=== PATIENT | female | born 1930 | race Caucasian/White ===

== ENCOUNTER → 2018-01-07 | Outpatient (CLI) | payer MEDICARE ==
[2014-11-06 12:52] VITALS: BMI 27.3
[~2018-01-07] MED LIST: ACET-1966 PO; ALE70 PO; ASCO-182 PO; ASPI-1471 PO; AZAT50TA25 PO; BENZ100C26 PO; CALC1TAB32 PO; CEFU250T11 PO; CEP500 PO; CHOL100058 PO; DAR100 PO; ESOM40CA42 PO; EST625 PO; FLU IM; GABA-1 PO; GABA-549 PO; HYDR-2966 PO; HYDR15OI21 TP; HYDR25SU51 RC; IBUP-1455 PO; IBUP-56 PO; LEV100 PO; LEV112 PO; LEVO-317 PO; LEVO137T23 PO; LISI-362 PO; LOPE2CAP88 PO; LUTE20CA11 PO; METF-450 PO; METO25TA93 PO; MULT1TAB64 PO; MYCO250C38 PO; OMEP-125 PO; OMEP-153 PO; OXYB10TA16 PO; PNEU0.5D3 IM; PYRI60TA9 PO; VAL80 PO; VALS-25 PO; VALS1TAB6 PO
--- NOTE | 2018-01-07 14:42 | RADIOLOGY IMAGING REPORT ---
[place] [facility] [place] NAME: Anupama Villa : 1930 MR: [id number] V: [id number] EXAM DATE: ORDERING PHYSICIAN: LUIS OSHEA TECHNOLOGIST: Location: [facility] Patient: Anupama Villa : 1930 Visit/Account:[id number] Date of Sevice: 01/07/2018 DEXA Scan Clinical history: Osteopenia. Comparison: DEXA scan from 10/27/2013. LUMBAR SPINE: The bone mineral density (BMD) measured from L1-L3 correlates with a Z-score 0.9 and a T-score of -1 .3 which is osteopenia as defined by the World Health Organization. The corresponding risk of fractu re in the lumbar spine is increased compared with a young adult reference population. This value has decreased by 10.1 % since the prior study. More than 5% change is considered significant. HIP: Bone mineral density (BMD) measured in the Left femoral neck region correlates with a Z-score 1.0 and a T-score of -1.7 which is osteopenia as defined by the World Health Organization. The correspond ing risk of fracture in the hip is increased compared with a young adult reference population. The to qasim hip value has decrease by 1.6 % since the prior study. More than 5% change is considered signifi cant. Bone mineral density (BMD) measured in the Femoral Neck region measures 0.799 g/cm2. IMPRESSION: 1. Lumbar spine: Osteopenia. There has been decrease in the bone mineral density since the previous exam. 2. Left femoral neck region: Osteopenia. There has been decrease in the bone mineral density of the total hip since the previous exam. 3. Femoral Neck: Bone Mineral Density is 0.799 g/cm2 The next DEXA scan of this patient should include the following sites: L1-L4 and the left hip. FRAX? WHO Fracture Risk Assessment Tool link: <http://www.shef.ac.uk/FRAX/tool.jsp?locationValue=9> PLEASE NOTE: 1) The World Health Organization defines low BMD as follows: T-score Normal > -1 Osteopenia < -1 and > -2.5 Osteoporosis < -2.5 without fractures Established osteoporosis < -2.5 with fractures 2) In general, you may wish to consider: Diagnosis Treatment Follow-up DEXA Normal BMD Prevention 2-3 years Osteopenia Prevention/therapy 1-2 years Osteoporosis Therapy Yearly 3) Fracture risk estimated from the T-score is more accurate for vertebral fractures (often spontane ous) than for hip fractures. Report Dictated By: Lauri Busby at 01/07/2018 2:36 PM Report E-Signed By: Lauri Busby at 01/07/2018 2:38 PM WSN:[id number]
--- NOTE | 2018-01-16 15:16 | RADIOLOGY IMAGING REPORT ---
FACILITY: [facility] - [place] PATIENT NAME: EFRAIN BOURGEOIS : [id number] MR: [id number] V: [id number] EXAM DATE: [id number] ORDERING PHYSICIAN: LUIS OSHEA TECHNOLOGIST: Kenia Gonzales PROCEDURE:BILATERAL DIGITAL SCREENING MAMMOGRAM WITH CAD ASSISTED INTERPRETATION & 3D TOMOSYNTHESIS COMPARISON:Priors INDICATIONS:SCREENING FINDINGS: Scattered fibroglandular densities are present in both breasts. An architectural distortion is present in the posterior Right upper outer quadrant consistent with surgical scaring, essential unchanged. A few benign appearing calcifications are scattered bilaterally. DIAGNOSTIC CATEGORY 2: BENIGN FINDING RECOMMENDATIONS: ROUTINE MAMMOGRAM AND CLINICAL EVALUATION IN 1 YR. IMPRESSION: BIRADS 2: Benign finding. Dictated by: Nicholas Guardado M.D. on 01/08/2018 at 16:18 Transcribed by: MONICA on 01/09/2018 at 8:33 Approved by: Lauri Martin on 01/16/2018 at 15:15 [facility]
== END ==
LOC: MAMO 00:42
PROVIDERS: ATTEND Internal Medicine
DX: Z12.31 Encounter for screening mammogram for malignant neoplasm of breast (principal); M85.88 Other specified disorders of bone density and structure, other site
CPT/HCPCS: 77063; 77067; 77080

== ENCOUNTER 2018-07-17 09:40 | Emergency (ER) | payer MEDICARE ==
[2014-11-06 12:52] VITALS: Wt 72.6 kg
--- NOTE | 2018-07-17 10:13 | ER Report ---
History and Physical Time Seen By MD: 09:55 Hx. of Stated Complaint: states tightness and dull ache in chest that radiates to right side for one week. hx of HTN and right side breat cancer HPI/ROS CHIEF COMPLAINT: Chest pain HISTORY OF PRESENT ILLNESS: t has had 1 wk of r sided chest pressure. It is located above r breast and radiates to shoulder and r upper back. Pt has been rubbing chest due to pain. She states that pressure has been constant x 1 week, not associated with exertion. She noted chills last night. She notes a rash on her r upper chest that she thinks is there due to rubbing. She has had no prior cardiac hx. Remote stress test was neg. No fam hx CAD. no recent travel, no hx dvt/pe. Takes baby asa daily since she had breast cancer years ago. REVIEW OF SYSTEMS: Constitutional: abvoe Eyes: No discharge. ENT: No sore throat. Cardiovascular: above Respiratory: No cough, no shortness of breath. Gastrointestinal: No abdominal pain, no vomiting. Genitourinary: no dysuria Musculoskeletal: No back pain. Skin: No rashes. Neurological: No headache. Remainder of the 14 system rev: Yes Allergies: Coded Allergies: Aminoglycosides (Verified Adverse Reaction, Severe, Avoid d/t myasthenia gravis, 07/17/18) Beta-Blockers (Beta-Adrenergic Bloc (Verified Adverse Reaction, Severe, Avoid d/t myasthenia gravis, 07/17/18) Neuromuscular Blockers, Benzylisoqu (Verified Adverse Reaction, Severe, Avoid d/t myasthenia gravis, 07/17/18) Neuromuscular Blockers, Steroidal (Verified Adverse Reaction, Severe, Avoid d/t myasthenia gravis, 07/17/18) Quinolones (Verified Adverse Reaction, Severe, Avoid d/t myasthenia gravis, 07/17/18) gabapentin (Verified Adverse Reaction, Severe, Avoid d/t myasthenia gravis, 07/17/18) magnesium (Verified Adverse Reaction, Severe, Avoid d/t myasthenia gravis, 07/17/18) phenytoin (Verified Adverse Reaction, Severe, Avoid d/t myasthenia gravis, 07/17/18) prednisone (Verified Adverse Reaction, Severe, Avoid d/t myasthenia gravis, 07/17/18) procainamide (Verified Adverse Reaction, Severe, Avoid d/t myasthenia gravis, 07/17/18) quinidine (Verified Adverse Reaction, Severe, Avoid d/t myasthenia gravis, 07/17/18) codeine (Verified Adverse Reaction, Mild, STOMACH ACHE, 07/17/18) Uncoded Allergies: acetylcholinesterace inhibitors (Adverse Reaction, Unknown, USE WITH CAUTION d/t myasthenia gravis, 12/16/14) central nervous system depressants (Adverse Reaction, Unknown, USE WITH CAUTION d/t myasthenia gravis, 12/16/14) opiates (Adverse Reaction, Unknown, USE WITH CAUTION d/t myasthenia gravis, 12/16/14) Home Meds Active Scripts Valacyclovir Hcl (VALACYCLOVIR) 1,000 Mg Tablet, 1000 MG PO TID for 7 Days, #21 TAB Prov:MARY PARRISH MD 07/17/18 Hydrochlorothiazide (HYDROCHLOROTHIAZIDE) 25 Mg Tab, 1 TAB PO QDAY, #90 TAB 3 Refills Prov:LUIS OSHEA MD 01/01/18 Lisinopril (LISINOPRIL) 10 Mg Tablet, 1 TAB PO QDAY, #90 TAB 3 Refills Prov:LUIS OSHEA MD 01/01/18 Esomeprazole Magnesium (NEXIUM) 40 Mg Capsule.dr, 1 CAP PO QDAY, #90 CAP 3 Ref ills Prov:LUIS OSHEA MD 01/01/18 Metoprolol Tartrate (METOPROLOL TARTRATE) 25 Mg Tablet, 1 TAB PO QDAY, #90 TAB 3 Refills Prov:LUIS OSHEA MD 01/01/18 Metformin Hcl (METFORMIN HCL) 500 Mg Tablet, 1 TAB PO QDAY, #90 TAB 3 Refills Prov:LUIS OSHEA MD 01/01/18 Levothyroxine Sodium (LEVOTHYROXINE SODIUM) 137 Mcg Tablet, 1 TAB PO QDAY, #90 TAB 3 Refills Prov:LUIS OSHEA MD 01/01/18 Hydrocortisone Valerate (HYDROCORTISONE VALERATE) 15 Gm Oint...g., 1 TYRON TP BID PRN for prn, #15 GM 0 Refills Prov:LUIS OSHEA MD 12/19/17 Pyridostigmine [place] (PYRIDOSTIGMINE BROMIDE) 60 Mg Tab, 1 TAB PO TID, #90 TAB Prov:LUIS OSHEA MD 07/30/17 Loperamide Hcl (LOPERAMIDE) 2 Mg Cap, 1 CAP PO QID PRN for diarrhea, #30 CAPSULE Prov:LUIS OSHEA MD 11/16/14 Reported Medications Cholecalciferol (Vitamin D3) (VITAMIN D) 1,000 Unit Capsule, 1 CAP PO QDAY, CAPSULE 01/17/18 Multivitamin (MULTI VITAMIN DAILY) 1 Each Tablet, 1 TAB PO DAILY 07/24/16 Azathioprine (AZATHIOPRINE) 50 Mg Tablet, 1 TAB PO TID 06/27/15 Lutein (LUTEIN) 20 Mg Capsule, 1 CAP PO DAILY 11/30/13 Aspirin (ASPIR 81) 81 Mg Tablet.dr, 1 TAB PO QDAY 11/30/13 Calcium Carb & Cit/Vitamin D3 (CALCIUM + D3 ER TABLET) 1 Each Tablet.er, 1 TAB PO DAILY 11/30/13 Hx Smoking: No Smoking Status: Never Smoker Exposure to Second Hand Smoke?: Yes (Growing up, Dad smoked pipe, and husb smoked x10 yrs) Hx Substance Use Disorder: No Hx Alcohol Use: No Constitutional Vital Sign - Last 24 Hours 07/17/18 07/17/18 07/17/18 07/17/18 09:43 10:00 10:06 10:30 Temp 98.0 Pulse 71 75 64 Resp 18 19 39 B/P (MAP) 178/88 184/97 (126) 147/81 (103) 139/69 (92) Pulse Ox 93 95 96 O2 Delivery Room Air 07/17/18 11:00 Pulse 69 Resp 25 B/P (MAP) 147/73 (97) Pulse Ox 95 Physical Exam General Appearance: The patient is alert, has no immediate need for airway protection and no signs of toxicity. [ ] Eyes: Pupils equal and round no pallor or injection. ENT, Mouth: Mucous membranes are moist. Respiratory: There are no retractions, lungs are clear to auscultation. Cardiovascular: Regular rate and rhythm. no m/r/g Gastrointestinal: Abdomen is soft and non tender, no masses, bowel sounds normal. Neurological: alert, oriented x 3, moves all ext Skin: vesicular exanthem across right chest and r shoulder blade c/w single dermatome herpes zoster Musculoskeletal: Extremities are nontender, nonswollen and have full range of motion. DIFFERENTIAL DIAGNOSIS: After history and physical exam differential diagnosis was considered for acs, pe, ptx, pneumonia, ad, though given presence of zoster, this is ultimately most likely etioogy. Medical Decision Making Data Points Result Diagram: 07/17/18 1006 07/17/18 1006 Laboratory Hematology Test 07/17/18 10:06 Red Blood Count 3.39 M/uL (4.17-5.56) Mean Corpuscular Volume 107.9 fL (80.0-96.0) Mean Corpuscular Hemoglobin 37.4 pg (26.0-33.0) Mean Corpuscular Hemoglobin Concent 34.7 g/dL (32.0-36.0) Red Cell Distribution Width 15.0 % (11.5-14.5) Mean Platelet Volume 8.3 fL (7.2-11.1) Neutrophils (%) (Auto) 69.2 % (39.4-72.5) Lymphocytes (%) (Auto) 15.9 % (17.6-49.6) Monocytes (%) (Auto) 10.9 % (4.1-12.4) Eosinophils (%) (Auto) 3.2 % (0.4-6.7) Basophils (%) (Auto) 0.8 % (0.3-1.4) Nucleated RBC Relative Count (auto) 0.1 /100WBC Neutrophils # (Auto) 3.2 K/uL (2.0-7.4) Lymphocytes # (Auto) 0.7 K/uL (1.3-3.6) Monocytes # (Auto) 0.5 K/uL (0.3-1.0) Eosinophils # (Auto) 0.1 K/uL (0.0-0.5) Basophils # (Auto) 0.0 K/uL (0.0-0.1) Nucleated RBC Absolute Count (auto) 0.00 K/uL Sodium Level 139 mmol/L (137-145) Potassium Level 3.9 mmol/L (3.5-5.0) Chloride Level 104 mmol/L (98-107) Carbon Dioxide Level 28 mmol/L (22-31) Blood Urea Nitrogen 25 mg/dl (7-18) Creatinine 1.00 mg/dl (0.52-1.04) Glomerular Filtration Rate Calc 52.2 Random Glucose 147 mg/dl (75-110) Calcium Level 9.1 mg/dl (8.4-10.2) Total Bilirubin 0.5 mg/dl (0.2-1.3) Aspartate Amino Transf (AST/SGOT) 21 U/L (0-35) Alanine Aminotransferase (ALT/SGPT) 17 U/L (0-56) Alkaline Phosphatase 44 U/L (0-126) Troponin I < 0.012 ng/ml Total Protein 7.0 g/dl (6.3-8.2) Albumin 3.9 g/dl (3.5-5.0) Chemistry Test 07/17/18 10:06 White Blood Count 4.6 k/uL (4.5-11.0) Red Blood Count 3.39 M/uL (4.17-5.56) Hemoglobin 12.7 g/dL (12.0-16.0) Hematocrit 36.6 % (34.0-47.0) Mean Corpuscular Volume 107.9 fL (80.0-96.0) Mean Corpuscular Hemoglobin 37.4 pg (26.0-33.0) Mean Corpuscular Hemoglobin Concent 34.7 g/dL (32.0-36.0) Red Cell Distribution Width 15.0 % (11.5-14.5) Platelet Count 237 K/uL (150-450) Mean Platelet Volume 8.3 fL (7.2-11.1) Neutrophils (%) (Auto) 69.2 % (39.4-72.5) Lymphocytes (%) (Auto) 15.9 % (17.6-49.6) Monocytes (%) (Auto) 10.9 % (4.1-12.4) Eosinophils (%) (Auto) 3.2 % (0.4-6.7) Basophils (%) (Auto) 0.8 % (0.3-1.4) Nucleated RBC Relative Count (auto) 0.1 /100WBC Neutrophils # (Auto) 3.2 K/uL (2.0-7.4) Lymphocytes # (Auto) 0.7 K/uL (1.3-3.6) Monocytes # (Auto) 0.5 K/uL (0.3-1.0) Eosinophils # (Auto) 0.1 K/uL (0.0-0.5) Basophils # (Auto) 0.0 K/uL (0.0-0.1) Nucleated RBC Absolute Count (auto) 0.00 K/uL Glomerular Filtration Rate Calc 52.2 Calcium Level 9.1 mg/dl (8.4-10.2) Total Bilirubin 0.5 mg/dl (0.2-1.3) Aspartate Amino Transf (AST/SGOT) 21 U/L (0-35) Alanine Aminotransferase (ALT/SGPT) 17 U/L (0-56) Alkaline Phosphatase 44 U/L (0-126) Troponin I < 0.012 ng/ml Total Protein 7.0 g/dl (6.3-8.2) Albumin 3.9 g/dl (3.5-5.0) EKG/Imaging EKG Interpretation 12 lead EKG: Rhythm: normal sinus rhythm rate 69 [place]: left axis QRS: normal ST segments: normal NSR, artifact due to mild resting tremor, no st elevations/depressions. Monitor Interpretation: Normal Sinus Rhythm ED Course/Re-evaluation ED Course 88 f presents with r sided chest discomfort; although i considered diff as above, ultimately findings are c/w herpes zoster. Doubt acs, pe, pneumonai or other complciation. Will tx with srp's. Decision to Disposition Date: July 17, 2018 Decision to Disposition Time: 10:46 Depart Departure Latest Vital Signs Vital Signs Date Time Temp Pulse Resp B/P (MAP) Pulse Ox O2 Delivery O2 Flow Rate FiO2 07/17/18 11:00 69 25 147/73 (97) 95 07/17/18 09:43 98.0 Room Air Impression: Primary Impression: Herpes zoster Condition: Improved Disposition: HOME OR SELF-CARE Referrals: LUIS OSHEA MD (PCP) 2 Days New Scripts Valacyclovir Hcl (VALACYCLOVIR) 1,000 Mg Tablet 1000 MG PO TID for 7 Days, #21 TAB Prov: MARY PARRISH MD 07/17/18 Patient Instructions: Chest Pain (ED), Shingles (ED) Additional Instructions: As we discussed, you have shingles; take the prescribed medication until gone. You may also use an over the counter topical cream that has numbing medication such as lidocaine/xylocaine or capcasin if you need for pain. Please return for worsening symptoms or any concerns. Problem Qualifiers Primary Impression: Herpes zoster Herpes zoster complications: without complications Qualified Codes: B02.9 - Zoster without complications MARY PARRISH MD July 17, 2018 10:13
[2018-07-17 10:25] LABS: PLATELET COUNT, AUTOMATED 237 K/uL (150-450)
--- NOTE | 2018-07-17 10:35 | EKG ---
FACILITY: [facility] PATIENT NAME: EFRAIN BOURGEOIS : [id number] MR: [id number] V: [id number] EXAM DATE: ORDERING PHYSICIAN: MARY PARRISH TECHNOLOGIST: IRWIN Perales Reason : CARDIAC Blood Pressure : / mmHG Vent. Rate : 069 BPM Atrial Rate : 069 BPM P-R Int : 154 ms QRS Dur : 088 ms QT Int : 418 ms P-R-T Axes : 055 -38 027 degrees QTc Int : 447 ms Normal sinus rhythm Left axis deviation Abnormal ECG When compared with ECG of 31-OCT-2014 15:00, premature ventricular complexes are no longer present Vent. rate has decreased BY 34 BPM Confirmed by PATRICK PHILLIPS ([id number]) on 07/17/2018 3:23:37 PM Referred By: FRANCOIS Confirmed By:PATRICK PHILLIPS
[2018-07-17] MEDS ORDERED: VALA100059 PO (10:54)
[2018-07-17 11:00] VITALS: BP 147/73
--- NOTE | 2018-07-17 11:01 | RADIOLOGY IMAGING REPORT ---
FACILITY: [facility] - [place] PATIENT NAME: Anupama Villa : 1930 MR: [id number] V: [id number] EXAM DATE: ORDERING PHYSICIAN: MARY PARRISH TECHNOLOGIST: Location: [facility] - [place] Patient: Anupama Villa : 1930 Visit/Account:[id number] Date of Sevice: 07/17/2018 Exam type: CHEST PA LAT History: dyspnea Comparison: October 31, 2014. Findings: The lungs are free of acute effusions, infiltrates or edema. The cardiac silhouette is mildly enlarg ed but unchanged. There is a moderate size hiatal hernia. There are surgical clips right upper quad rant abdomen. Spondylotic changes of the thoracic spine are again noted IMPRESSION: 1. Moderate size hiatal hernia although no evidence of acute pulmonary consolidation Report Dictated By: Chani Phelps MD at 07/17/2018 10:53 AM Report E-Signed By: Chani Phelps MD at 07/17/2018 10:56 AM WSN:[id number]
== END 2018-07-17 11:13 | disposition home or self-care (01) ==
LOC: ER 09:50
DX: B02.9 Zoster without complications (principal)
CPT/HCPCS: 71046; 82040; 82247; 82310; 82374; 82435; 82565; 82947; 84075; 84132; 84155; 84295; 84450; 84460; 84484; 84520; 85025; 93005; 99284

== ENCOUNTER → 2018-08-04 | Outpatient (CLI) | payer MEDICARE ==
[2014-11-06 12:52] VITALS: BMI 27.3
[~2018-08-04] MED LIST changes: +ACET-2146 PO; +LEV125 PO; +LIDO30CR TOP; +LIDO700A19 TOP; +MIRA50TA PO; -OMEP-125 PO; +OMEP-126 PO; +VALA100059 PO
== END ==
LOC: LAB 12:28
PROVIDERS: ATTEND Family Medicine
DX: E03.9 Hypothyroidism, unspecified (principal)
CPT/HCPCS: 36415; 84443

== ENCOUNTER 2018-08-10 22:31 | Emergency (ER) | payer MEDICARE ==
[2014-11-06 12:52] VITALS: Wt 50.3 kg
--- NOTE | 2018-08-10 23:05 | ER Report ---
History and Physical Time Seen By MD: 23:05 Hx. of Stated Complaint: PATIENT HAS BEEN BEING TREAT FOR SHINGLES SHE WAS DIAGNOSED WITH ON 07/17, PATIENT STATES THE RASH HAS BEEN HEALING UP, AND HER PAIN HAS BEEN UNDER CONTROL, BUT TONIGHT THE PAIN HAS BEEN REALLY BAD AND SHE CAN'T GET IT UNDER CONTROL, SHE HAS LIDO PATCHES ON BUT THEY ARE NOT HELPING. HPI/ROS CHIEF COMPLAINT: pain from shingles HISTORY OF PRESENT ILLNESS: This is an 88 year old female. She has been recently diagnosed with shingles. She also has myasthenia gravis. She is on lidocaine patches and topical cream. Pain much worse tonight. Burning in quality. Lidocaine helps a little, but not enough. No shortness of breath. She put on two lidocaine patches tonight. Because of the MG, we are limited on options for her pain. No fevers. No shortness of breath. Allergies: Coded Allergies: Aminoglycosides (Verified Adverse Reaction, Severe, Avoid d/t myasthenia gravis, 08/10/18) Beta-Blockers (Beta-Adrenergic Bloc (Verified Adverse Reaction, Severe, Avoid d/t myasthenia gravis, 08/10/18) Neuromuscular Blockers, Benzylisoqu (Verified Adverse Reaction, Severe, Avoid d/t myasthenia gravis, 08/10/18) Neuromuscular Blockers, Steroidal (Verified Adverse Reaction, Severe, Avoid d/t myasthenia gravis, 08/10/18) Quinolones (Verified Adverse Reaction, Severe, Avoid d/t myasthenia gravis, 08/10/18) gabapentin (Verified Adverse Reaction, Severe, Avoid d/t myasthenia gravis, 08/10/18) magnesium (Verified Adverse Reaction, Severe, Avoid d/t myasthenia gravis, 08/10/18) phenytoin (Verified Adverse Reaction, Severe, Avoid d/t myasthenia gravis, 08/10/18) prednisone (Verified Adverse Reaction, Severe, Avoid d/t myasthenia gravis, 08/10/18) procainamide (Verified Adverse Reaction, Severe, Avoid d/t myasthenia gravis, 08/10/18) quinidine (Verified Adverse Reaction, Severe, Avoid d/t myasthenia gravis, 08/10/18) codeine (Verified Adverse Reaction, Mild, STOMACH ACHE, 08/10/18) Uncoded Allergies: acetylcholinesterace inhibitors (Adverse Reaction, Unknown, USE WITH CAUTION d/t myasthenia gravis, 12/16/14) central nervous system depressants (Adverse Reaction, Unknown, USE WITH CAUTION d/t myasthenia gravis, 12/16/14) opiates (Adverse Reaction, Unknown, USE WITH CAUTION d/t myasthenia gravis, 12/16/14) Home Meds Active Scripts Lidocaine (Lidocaine) 5 % Cream..g., 1 TYRON ASDIRECTED Q4H PRN for PAIN, #1 TUBE 0 Refills Prov:YANIRA GURROLA MD 08/11/18 Oxycodone Hcl/Acetaminophen (PERCOCET 5-325 MG TABLET) 1 Each Tablet, 1 EACH PO Q4H PRN for PAIN, #12 TAB 0 Refills Prov:YANIRA GURROLA MD 08/11/18 Levothyroxine Sodium (LEVOTHYROXINE SODIUM) 0.125 Mg Tab, 1 TAB PO QDAY for 90 Days, #90 TAB Prov:BELKIS JOSE MD 08/05/18 Lidocaine (Lidocaine) 5 % Cream..g., 1 TYRON TOP TID, #1 TUBE apply to chest and back over area of shingles rash up to three times daily as needed Prov:BELKIS JOSE MD 07/31/18 Lidocaine (Lidocaine) 5 % Adh..patch, 1 ADH.PATCH TOP Q12H for 30 Days, #30 ADH.PATCH Prov:BELKIS JOSE MD 07/31/18 Hydrochlorothiazide (HYDROCHLOROTHIAZIDE) 25 Mg Tab, 1 TAB PO QDAY, #90 TAB 3 Refills Prov:LUIS OSHEA MD 01/01/18 Lisinopril (LISINOPRIL) 10 Mg Tablet, 1 TAB PO QDAY, #90 TAB 3 Refills Prov:LUIS OSHEA MD 01/01/18 Esomeprazole Magnesium (NEXIUM) 40 Mg Capsule.dr, 1 CAP PO QDAY, #90 CAP 3 Refills Prov:LUIS OSHEA MD 01/01/18 Metoprolol Tartrate (METOPROLOL TARTRATE) 25 Mg Tablet, 1 TAB PO QDAY, #90 TAB 3 Refills Prov:LUIS OSHEA MD 01/01/18 Metformin Hcl (METFORMIN HCL) 500 Mg Tablet, 1 TAB PO QDAY, #90 TAB 3 Refills Prov:LUIS OSHEA MD 01/01/18 Hydrocortisone Valerate (HYDROCORTISONE VALERATE) 15 Gm Oint...g., 1 TYRON TP BID PRN for prn, #15 GM 0 Refills Prov:LUIS OSHEA MD 12/19/17 Pyridostigmine [place] (PYRIDOSTIGMINE BROMIDE) 60 Mg Tab, 1 TAB PO TID, #90 TAB Prov:LUIS OSHEA MD 07/30/17 Loperamide Hcl (LOPERAMIDE) 2 Mg Cap, 1 CAP PO QID PRN for diarrhea, #30 CAPSULE Prov:LUIS OSHEA MD 11/16/14 Reported Medications Mirabegron (MYRBETRIQ) 50 Mg Tab.er.24h, 1 TAB PO DAILY 08/04/18 Acetaminophen 500 Mg Tab (ACETAMINOPHEN EXTRA STRENGTH) 500 Mg Tablet, 1-2 TAB PO PRN, TAB 08/04/18 Multivitamin (MULTI VITAMIN DAILY) 1 Each Tablet, 1 TAB PO DAILY 07/24/16 Azathioprine (AZATHIOPRINE) 50 Mg Tablet, 1 TAB PO TID 06/27/15 Lutein (LUTEIN) 20 Mg Capsule, 1 CAP PO DAILY 11/30/13 Aspirin (ASPIR 81) 81 Mg Tablet.dr, 1 TAB PO QDAY 11/30/13 Calcium Carb & Cit/Vitamin D3 (CALCIUM + D3 ER TABLET) 1 Each Tablet.er, 1 TAB PO DAILY 11/30/13 Discontinued Reported Medications Cholecalciferol (Vitamin D3) (VITAMIN D) 1,000 Unit Capsule, 1 CAP PO QDAY, CAPSULE 01/17/18 Discontinued Scripts Levothyroxine Sodium (LEVOTHYROXINE SODIUM) 137 Mcg Tablet, 1 TAB PO QDAY, #90 TAB 3 Refills Prov:LUIS OSHEA MD 01/01/18 Valacyclovir Hcl (VALACYCLOVIR) 1,000 Mg Tablet, 1000 MG PO TID for 7 Days, #21 TAB Prov:MARY PARRISH MD 07/17/18 Reviewed Nurses Notes: Yes Hx Smoking: No Smoking Status: Never Smoker Exposure to Second Hand Smoke?: Yes (Growing up, Dad smoked pipe, and husb smoked x10 yrs) Hx Substance Use Disorder: No Hx Alcohol Use: No Constitutional Vital Sign - Last 24 Hours 08/10/18 22:40 Temp 98.4 Pulse 85 Resp 28 B/P (MAP) 180/85 Pulse Ox 94 O2 Delivery Room Air Physical Exam General Appearance: Alert, acute distress due to pain. Eyes: Pupils equal and round no injection. ENT: Normal oral mucosa. Moist mucous membranes. Neck: Neck is supple and non tender. Respiratory: Lungs are clear to auscultation. Cardiac: regular rate and rhythm Neuro: normal strength and sensation tonight in arms and chest. pain burning and worse with clothing or substances rubbing against her skin. Skin: Healed rash, no open sores. DIFFERENTIAL DIAGNOSIS: After history and physical exam differential diagnosis was considered for post-herpetic neuralgia. Medical Decision Making ED Course/Re-evaluation ED Course Trial of some percocet, tolerated well, which decreased pain some. Will continue with lidocaine topical as well. Decision to Disposition Date: Aug 11, 2018 Decision to Disposition Time: 01:39 Depart Departure Latest Vital Signs Vital Signs Date Time Temp Pulse Resp B/P (MAP) Pulse Ox O2 Delivery O2 Flow Rate FiO2 08/10/18 22:40 98.4 85 28 180/85 94 Room Air Impression: Primary Impression: Post herpetic neuralgia Condition: Improved Disposition: HOME OR SELF-CARE Referrals: BELKIS JOSE MD (PCP) New Scripts Lidocaine (Lidocaine) 5 % Cream..g. 1 TYRON ASDIRECTED Q4H PRN for PAIN, #1 TUBE 0 Refills Prov: YANIRA GURROLA MD 08/11/18 Oxycodone Hcl/Acetaminophen (PERCOCET 5-325 MG TABLET) 1 Each Tablet 1 EACH PO Q4H PRN for PAIN, #12 TAB 0 Refills Prov: YANIRA GURROLA MD 08/11/18 Patient Instructions: Shingles (ED) Additional Instructions: The nerve pain you have is from the shingles and is called Post-Herpetic Neuralgia. Keep using the topical Licdocaine. We are going to add in Percocet 5/325, one every 4 hours as needed for severe pain. Call Dr. Jose's office tomorrow for follow-up. YANIRA GURROLA MD Aug 10, 2018 23:05
[2018-08-10] MEDS ORDERED: APAP/HYDROCODONE 325/5 TAB PO ONE (23:55)
[2018-08-11 01:30] VITALS: BP 154/80
[2018-08-11] MEDS ORDERED: oxyCODONE/ACETAMIN 5/325MG TH 2 TAB/BOTTLE PO ONE (01:40)
[2018-08-11] MEDS ORDERED: LIDOCAINE 5% OINT 35.44 GM OINT TP PRN ×2 (01:40)
[2018-08-11] MEDS ORDERED: OXYC-865 PO (01:42)
[2018-08-11] MEDS ORDERED: LIDO15CR8 ASDIRECTED (01:42)
== END 2018-08-11 02:20 | disposition home or self-care (01) ==
LOC: ER 22:37
DX: B02.29 Other postherpetic nervous system involvement (principal)
CPT/HCPCS: 99283; A9270